=== PATIENT | female | born 1990 | race Caucasian/White ===

== ENCOUNTER 2016-07-28 11:00 | Outpatient (RCR) | payer MEDICAID ==
[~2016-07-28 11:00] MED LIST: /ONDA4TA OR; ALBUTEROL INH; DILA2TAB OR; IBUP80TA PO; LIDODERM PATCH TOP; OXYB5TAB4 OR; PERCOCET PO; PHEN 25 PO; PRENATAL VITAMIN PO; PRENTAB43 PO; TUMS500C PO; TYLE167L PO; VICO5TAB OR
== END 2016-08-02 | disposition home or self-care (01) ==
LOC: M OUTALCOH 11:00
PROVIDERS: ATTEND Psychiatry & Neurology Psychiatry
DX: F12.10 Cannabis abuse, uncomplicated (principal); F17.200 Nicotine dependence, unspecified, uncomplicated

== ENCOUNTER 2016-08-20 00:31 | Emergency (ER) | payer MEDICAID, OTHER ==
[2016-08-20] MEDS ORDERED: IBUPROFEN 600 MG TAB As Ordered ONE ×2 (00:56→01:01)
[2016-08-20] MEDS ORDERED: AUGMENTIN 875 MG TAB As Ordered ONE (00:56)
--- NOTE | 2016-08-20 01:10 | EDDOCDS ---
Physician Documentation [facility] Name: Rylie Rosa Age: 25 yrs Sex: Female : 1990 Arrival Date: 08/20/2016 Time: 00:31 Bed I1 / M1 Private MD: Disposition: 08/20/16 00:53 Discharged to Home/Self Care. Impression: Jaw pain - left post extraction pain following dental procedure. - Condition is Stable. - Discharge Instructions: Dental Extraction, Care After. - Prescriptions for Augmentin 875- 125 mg Oral Tablet - take 1 tablet by ORAL route every 12 hours for 10 days; 19 tablet. Ibuprofen 600 mg Oral Tablet - take 1 tablet by ORAL route every 6 hours As needed take with food; 30 tablet. - Medication Reconciliation, Local Pharmacy Hours form. - Follow up: Private Physician; When: As previously arranged; Reason: Recheck today's complaints, Continuance of care. Follow up: Emergency Department; When: As needed; Reason: Fever > 102F, Trouble breathing, Worsening of conditions. - Problem is new. - Symptoms are unchanged. Historical: - Allergies: Advair Diskus (Anaphylaxis); codeine (Rash); Tramadol HCl (Rash); - Home Meds: 1. Vicodin 5-500 mg Oral tab 1 tab every 4-6 hours - PMHx: Asthma; GERD; Kidney stones; Ovarian cyst; - PSHx: stone basket retieval kidney stones; renal stent; ; teeth removal; - Social history: Smoking status: Patient uses tobacco products, heavy tobacco smoker. No barriers to communication noted, The patient speaks fluent American. - Family history: Not pertinent. - : The pt / caregiver states he / she is not on anticoagulants. Home medication list is obtained from the patient. - Exposure Risk Screening:: None identified. 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 1 in. (154.94 cm); Pain 4/10; 00:39 Body Mass Index 23.62 (56.70 kg, 154.94 cm) mcp MDM: 00:53 Amoxicillin-Clavulanate 875 mg 1 tabs PO once ordered. ar2 00:53 Ibuprofen 600 mg PO once ordered. ar2 01:06 Financial registration complete. hs2 Administered Medications: 01:08 Drug: Amoxicillin-Clavulanate 1 tabs [amoxicillin 875 mg-potassium clavulanate 125 mg ld5 tablet (1 tabs)] Route: PO; 01:08 Drug: Ibuprofen 600 mg [ibuprofen 600 mg tablet (1 tabs)] Route: PO; ld5 01:08 Follow up: Response: Pt left department before re-evaluation is appropriate ld5 Signatures: Rosemary Hernández RN RN Chris Santa, PAAlexC PAMerlin ar2 Migdalia Marquez RN RN ld5 Marline Huffman, Reg Reg hs2 MTDD
--- NOTE | 2016-08-20 01:10 | EDDOCDS ---
Nurse's Notes [facility] Name: Rylie Rosa Age: 25 yrs Sex: Female : 1990 Arrival Date: 08/20/2016 Time: 00:31 Bed I1 / M1 Private MD: Diagnosis: Jaw pain-left post extraction pain following dental procedure Presentation: 08/20 00:40 Presenting complaint: Patient states: Week ago got 4 teeth pulled--has stitches in mcp mouth and was told to watch for dry socket. Ran out of Ibuprophen. Has had some swelling. Adult Sepsis Screening: The patient does not have new or worsening altered mentation. Patient's respiratory rate is less than 22. Systolic blood pressure is greater than 100. Patient has a qSOFA score of 0- Negative Sepsis Screen. Suicide/Homicide risk assessment- the patient denies having any suicidal and/or homicidal ideations and does not present with any other emotional, behavioral or mental health complaints. Status: Patient is not a auto service representative or dependent. Transition of care: patient was not received from another setting of care. 00:40 Acuity: MAKAYLA Level 4 [facility] 00:40 Method Of Arrival: Walkin/Carried/Asstd [facility] Triage Assessment: 00:43 General: Appears in no apparent distress, Behavior is cooperative. Pain: Location: [facility] mouth Pain currently is 4 out of 10 on a pain scale. HIV screening NA for this visit Offered previously. Neurological: No deficits noted. Respiratory: Airway is patent Respiratory effort is even, unlabored. Derm: Skin is pink, warm & dry. 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 Vicodin 5-500 mg Oral tab 1 tab every 4-6 hours - PMHx: Asthma; GERD; Kidney stones; Ovarian cyst; - PSHx: stone basket retieval kidney stones; renal stent; ; teeth removal; - Social history: Smoking status: Patient uses tobacco products, heavy tobacco smoker. No barriers to communication noted, The patient speaks fluent Luxembourgish. - Family history: Not pertinent. - : The pt / caregiver states he / she is not on anticoagulants. Home medication list is obtained from the patient. - Exposure Risk Screening:: None identified. Screenin:07 Screening information is obtained from the patient. Fall risk: No risks identified. ld5 Assistance ADL's: requires no assistance with activities of daily living. Abuse/DV Screen: The patient / caregiver reports he/she is: not in a situation that causes fear, pain or injury. Nutritional screening: No deficits noted. Advance Directives: Currently, there is no health care proxy. home support is adequate. Assessment: 01:07 General: Appears in no apparent distress, Behavior is cooperative. Pain: Location: ld5 mouth. Neurological: Level of Consciousness is awake, Oriented to person, place, time. EENT: Reports pain in mouth. Respiratory: Airway is patent Respiratory effort is even, unlabored. Vital Signs: 00:39 BP 124 / 71; Pulse 83; Resp 18; Temp 96.3(T); Pulse Ox 96% on R/A; Weight 56.7 kg; [facility] Height 5 ft. 1 in. (154.94 cm); Pain 4/10; 00:39 Body Mass Index 23.62 (56.70 kg, 154.94 cm) [facility] Vitals: 00:39 Log In Time: August 20, 2016 at 00:31. [facility] ED Course: 00:36 Patient visited by Marline Huffman Reg. hs2 00:36 Patient moved to Waiting hs2 00:42 Triage Initiated [facility] 00:44 Patient visited by Rosemary Hernández RN. [facility] 00:44 Patient moved to I1 / M1 [facility] 00:46 [facility] ar2 00:46 Eros Hayward DO is Attending Physician. ar2 00:46 Patient visited by Chris Reese PA-C. ar2 01:07 The patient / caregiver is instructed regarding the plan of care and ED course. ld5 01:07 No IV's were initiated during this patient's visit. No procedures done that require ld5 assistance. 01:09 Patient visited by Migdalia Marquez RN. ld5 Administered Medications: 01:08 Drug: Amoxicillin-Clavulanate 1 tabs [amoxicillin 875 mg-potassium clavulanate 125 mg ld5 tablet (1 tabs)] Route: PO; 01:08 Drug: Ibuprofen 600 mg [ibuprofen 600 mg tablet (1 tabs)] Route: PO; ld5 01:08 Follow up: Response: Pt left department before re-evaluation is appropriate ld5 Order Results: There are currently no results for this order. Outcome: 00:53 Discharge ordered by Provider. ar2 01:07 Discharge Assessment: Patient awake, alert and oriented x 3. No cognitive and/or ld5 functional deficits noted. Patient verbalized understanding of disposition instructions. patient administered narcotics - no. The following High Risk Discharge criteria are identified: None. Discharged to home ambulatory, with friend. Condition: stable. Discharge instructions given to patient, Instructed on discharge instructions, follow up and referral plans. medication usage, Demonstrated understanding of instructions, medications, Pt was receptive of discharge instructions/ teaching. Prescriptions given X 2. No special radiology studies were completed. Property :Personal belongings accompany Pt. 01:08 Patient left the ED. ld5 Signatures: Rosemary Hernández RN RN mcp Chris Reese, MARÍA ELENA RING ar2 Migdalia Marquez RN RN ld5 Marline Huffman, Reg Reg hs2 Corrections: (The following items were deleted from the chart) 00:42 00:40 Presenting complaint: Patient states: Week ago got 4 teeth pulled--has stitches mcp in mouth and was told to watch for dry socket. Ran out of Ibuprophen mcp MTDD
--- NOTE | 2016-08-22 02:09 | EDDOCDS ---
Nurse's Notes [facility] Name: Rylie Rosa Age: 25 yrs Sex: Female : 1990 Arrival Date: 08/20/2016 Time: 00:31 Bed I1 / M1 Private MD: Diagnosis: Jaw pain-left post extraction pain following dental procedure Presentation: 08/20 00:40 Presenting complaint: Patient states: Week ago got 4 teeth pulled--has stitches in mcp mouth and was told to watch for dry socket. Ran out of Ibuprophen. Has had some swelling. Adult Sepsis Screening: The patient does not have new or worsening altered mentation. Patient's respiratory rate is less than 22. Systolic blood pressure is greater than 100. Patient has a qSOFA score of 0- Negative Sepsis Screen. Suicide/Homicide risk assessment- the patient denies having any suicidal and/or homicidal ideations and does not present with any other emotional, behavioral or mental health complaints. Status: Patient is not a family service caseworker or dependent. Transition of care: patient was not received from another setting of care. 00:40 Acuity: MAKAYLA Level 4 [facility] 00:40 Method Of Arrival: Walkin/Carried/Asstd [facility] Triage Assessment: 00:43 General: Appears in no apparent distress, Behavior is cooperative. Pain: Location: [facility] mouth Pain currently is 4 out of 10 on a pain scale. HIV screening NA for this visit Offered previously. Neurological: No deficits noted. Respiratory: Airway is patent Respiratory effort is even, unlabored. Derm: Skin is pink, warm & dry. 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 Vicodin 5-500 mg Oral tab 1 tab every 4-6 hours - PMHx: Asthma; GERD; Kidney stones; Ovarian cyst; - PSHx: stone basket retieval kidney stones; renal stent; ; teeth removal; - Social history: Smoking status: Patient uses tobacco products, heavy tobacco smoker. No barriers to communication noted, The patient speaks fluent Indonesian. - Family history: Not pertinent. - : The pt / caregiver states he / she is not on anticoagulants. Home medication list is obtained from the patient. - Exposure Risk Screening:: None identified. Screenin:07 Screening information is obtained from the patient. Fall risk: No risks identified. ld5 Assistance ADL's: requires no assistance with activities of daily living. Abuse/DV Screen: The patient / caregiver reports he/she is: not in a situation that causes fear, pain or injury. Nutritional screening: No deficits noted. Advance Directives: Currently, there is no health care proxy. home support is adequate. Assessment: 01:07 General: Appears in no apparent distress, Behavior is cooperative. Pain: Location: ld5 mouth. Neurological: Level of Consciousness is awake, Oriented to person, place, time. EENT: Reports pain in mouth. Respiratory: Airway is patent Respiratory effort is even, unlabored. Vital Signs: 00:39 BP 124 / 71; Pulse 83; Resp 18; Temp 96.3(T); Pulse Ox 96% on R/A; Weight 56.7 kg; [facility] Height 5 ft. 1 in. (154.94 cm); Pain 4/10; 00:39 Body Mass Index 23.62 (56.70 kg, 154.94 cm) [facility] Vitals: 00:39 Log In Time: August 20, 2016 at 00:31. [facility] ED Course: 00:36 Patient visited by Marline Huffman Reg. hs2 00:36 Patient moved to Waiting hs2 00:42 Triage Initiated [facility] 00:44 Patient visited by Rosemary Hernández RN. [facility] 00:44 Patient moved to I1 / M1 [facility] 00:46 Chris Reese [facility]-C [facility] ar2 00:46 Eros Hayward DO is Attending Physician. ar2 00:46 Patient visited by Chris Reese PA-C. ar2 01:07 The patient / caregiver is instructed regarding the plan of care and ED course. ld5 01:07 No IV's were initiated during this patient's visit. No procedures done that require ld5 assistance. 01:09 Patient visited by Migdalia Marquez RN. ld5 03:59 [facility] Payment Agreement was scanned into [employer] and attached to record. [facility] 11:52 T-Sheet-- Draft Copy was scanned into [employer] and attached to record. gb Administered Medications: 01:08 Drug: Amoxicillin-Clavulanate 1 tabs [amoxicillin 875 mg-potassium clavulanate 125 mg ld5 tablet (1 tabs)] Route: PO; 01:08 Drug: Ibuprofen 600 mg [ibuprofen 600 mg tablet (1 tabs)] Route: PO; ld5 01:08 Follow up: Response: Pt left department before re-evaluation is appropriate ld5 Order Results: There are currently no results for this order. Outcome: 00:53 Discharge ordered by Provider. ar2 01:07 Discharge Assessment: Patient awake, alert and oriented x 3. No cognitive and/or ld5 functional deficits noted. Patient verbalized understanding of disposition instructions. patient administered narcotics - no. The following High Risk Discharge criteria are identified: None. Discharged to home ambulatory, with friend. Condition: stable. Discharge instructions given to patient, Instructed on discharge instructions, follow up and referral plans. medication usage, Demonstrated understanding of instructions, medications, Pt was receptive of discharge instructions/ teaching. Prescriptions given X 2. No special radiology studies were completed. Property :Personal belongings accompany Pt. 01:08 Patient left the ED. ld5 Signatures: Rosemary Hernández RN RN Rizwana Whitney, Reg Reg gb Chris Reese, PA-C PA-C ar2 Migdalia Marquez RN RN ld5 Cherie Iqbal Marline Leroy, Reg Reg hs2 Corrections: (The following items were deleted from the chart) 00:42 00:40 Presenting complaint: Patient states: Week ago got 4 teeth pulled--has stitches mcp in mouth and was told to watch for dry socket. Ran out of Ibuprophen mcp Chart Complete MTDD
--- NOTE | 2016-08-22 02:09 | EDDOCDS ---
Physician Documentation [facility] Name: Rylie Rosa Age: 25 yrs Sex: Female : 1990 Arrival Date: 08/20/2016 Time: 00:31 Bed I1 / M1 Private MD: Disposition: 08/20/16 00:53 Discharged to Home/Self Care. Impression: Jaw pain - left post extraction pain following dental procedure. - Condition is Stable. - Discharge Instructions: Dental Extraction, Care After. - Prescriptions for Augmentin 875- 125 mg Oral Tablet - take 1 tablet by ORAL route every 12 hours for 10 days; 19 tablet. Ibuprofen 600 mg Oral Tablet - take 1 tablet by ORAL route every 6 hours As needed take with food; 30 tablet. - Medication Reconciliation, Local Pharmacy Hours form. - Follow up: Private Physician; When: As previously arranged; Reason: Recheck today's complaints, Continuance of care. Follow up: Emergency Department; When: As needed; Reason: Fever > 102F, Trouble breathing, Worsening of conditions. - Problem is new. - Symptoms are unchanged. Historical: - Allergies: Advair Diskus (Anaphylaxis); codeine (Rash); Tramadol HCl (Rash); - Home Meds: 1. Vicodin 5-500 mg Oral tab 1 tab every 4-6 hours - PMHx: Asthma; GERD; Kidney stones; Ovarian cyst; - PSHx: stone basket retieval kidney stones; renal stent; ; teeth removal; - Social history: Smoking status: Patient uses tobacco products, heavy tobacco smoker. No barriers to communication noted, The patient speaks fluent Malaysian. - Family history: Not pertinent. - : The pt / caregiver states he / she is not on anticoagulants. Home medication list is obtained from the patient. - Exposure Risk Screening:: None identified. 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 1 in. (154.94 cm); Pain 4/10; 00:39 Body Mass Index 23.62 (56.70 kg, 154.94 cm) mcp MDM: 00:53 Amoxicillin-Clavulanate 875 mg 1 tabs PO once ordered. ar2 00:53 Ibuprofen 600 mg PO once ordered. ar2 01:06 Financial registration complete. hs2 03:59 [facility] Payment Agreement was scanned into [employer] and attached to record. [facility] 11:52 T-Sheet-- Draft Copy was scanned into [employer] and attached to record. gb Administered Medications: 01:08 Drug: Amoxicillin-Clavulanate 1 tabs [amoxicillin 875 mg-potassium clavulanate 125 mg ld5 tablet (1 tabs)] Route: PO; 01:08 Drug: Ibuprofen 600 mg [ibuprofen 600 mg tablet (1 tabs)] Route: PO; ld5 01:08 Follow up: Response: Pt left department before re-evaluation is appropriate ld5 Signatures: Rosmeary Hernández RN RN [facility] Rizwana Camara, Reg Reg gb Chris Reese, PA-C PAMerlin ar2 Migdalia Marquez RN RN [facility] Cherie Iqbal [facility] Marline Huffman, Reg Reg hs2 The chart was reviewed and I authenticate all verbal orders and agree with the evaluation and treatment provided.Attachments: 03:59 [facility] Payment Agreement [facility] 11:52 T-Sheet-- Draft Copy gb Chart Complete MTDD
--- NOTE | 2016-08-22 02:09 | EDDOCDS ---
Physician Documentation [facility] Name: Rylie Rosa Age: 25 yrs Sex: Female : 1990 Arrival Date: 08/20/2016 Time: 00:31 Bed I1 / M1 Private MD: Disposition: 08/20/16 00:53 Discharged to Home/Self Care. Impression: Jaw pain - left post extraction pain following dental procedure. - Condition is Stable. - Discharge Instructions: Dental Extraction, Care After. - Prescriptions for Augmentin 875- 125 mg Oral Tablet - take 1 tablet by ORAL route every 12 hours for 10 days; 19 tablet. Ibuprofen 600 mg Oral Tablet - take 1 tablet by ORAL route every 6 hours As needed take with food; 30 tablet. - Medication Reconciliation, Local Pharmacy Hours form. - Follow up: Private Physician; When: As previously arranged; Reason: Recheck today's complaints, Continuance of care. Follow up: Emergency Department; When: As needed; Reason: Fever > 102F, Trouble breathing, Worsening of conditions. - Problem is new. - Symptoms are unchanged. Historical: - Allergies: Advair Diskus (Anaphylaxis); codeine (Rash); Tramadol HCl (Rash); - Home Meds: 1. Vicodin 5-500 mg Oral tab 1 tab every 4-6 hours - PMHx: Asthma; GERD; Kidney stones; Ovarian cyst; - PSHx: stone basket retieval kidney stones; renal stent; ; teeth removal; - Social history: Smoking status: Patient uses tobacco products, heavy tobacco smoker. No barriers to communication noted, The patient speaks fluent Comoran. - Family history: Not pertinent. - : The pt / caregiver states he / she is not on anticoagulants. Home medication list is obtained from the patient. - Exposure Risk Screening:: None identified. 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 1 in. (154.94 cm); Pain 4/10; 00:39 Body Mass Index 23.62 (56.70 kg, 154.94 cm) mcp MDM: 00:53 Amoxicillin-Clavulanate 875 mg 1 tabs PO once ordered. ar2 00:53 Ibuprofen 600 mg PO once ordered. ar2 01:06 Financial registration complete. hs2 03:59 [facility] Payment Agreement was scanned into [employer] and attached to record. [facility] 11:52 T-Sheet-- Draft Copy was scanned into [employer] and attached to record. gb Administered Medications: 01:08 Drug: Amoxicillin-Clavulanate 1 tabs [amoxicillin 875 mg-potassium clavulanate 125 mg ld5 tablet (1 tabs)] Route: PO; 01:08 Drug: Ibuprofen 600 mg [ibuprofen 600 mg tablet (1 tabs)] Route: PO; ld5 01:08 Follow up: Response: Pt left department before re-evaluation is appropriate ld5 Signatures: Rosemary Hernández RN RN [facility] Rizwana Camara, Reg Reg gb Chris Reese, PA-C PAMerlin ar2 Migdalia Marquez RN RN [facility] Cherie Iqbal [facility] Marline Huffman, Reg Reg hs2 The chart was reviewed and I authenticate all verbal orders and agree with the evaluation and treatment provided.Attachments: 03:59 [facility] Payment Agreement [facility] 11:52 T-Sheet-- Draft Copy gb Chart Complete MTDD
== END 2016-08-20 01:08 | disposition home or self-care (01) ==
LOC: M ED 00:31
DX: R68.84 Jaw pain (principal); Z98.890 Other specified postprocedural states; J45.909 Unspecified asthma, uncomplicated; K21.9 Gastro-esophageal reflux disease without esophagitis; Z87.442 Personal history of urinary calculi; Z87.42 Personal history of other diseases of the female genital tract; Z88.5 Allergy status to narcotic agent; Z88.8 Allergy status to other drugs, medicaments and biological substances; F17.210 Nicotine dependence, cigarettes, uncomplicated

== ENCOUNTER 2016-09-12 12:43 | Emergency (ER) | payer OTHER ==
[~2016-09-12] VITALS: Ht 154.9 cm; Wt 56.7 kg
[2016-09-12] MEDS ORDERED: ONDANSETRON 4MG/2ML VIAL (J2405) IV ONE (13:30)
[2016-09-12] MEDS ORDERED: NS 1,000 ML IV ONE (13:30)
[2016-09-12] MEDS ORDERED: MORPHINE 4 MG/ML 1ML SYRINGE IV ONE (13:30)
[2016-09-12 14:05] LABS: MEAN CORPUSCULAR HEMOGLOBIN 30.8 pg (27.0-33.0); MEAN CORPUSCULAR HGB CONC 34.4 g/dl (32.0-36.5); MEAN CORPUSCULAR VOLUME 89.6 fl (80.0-96.0); RED CELL DISTRIBUTION WIDTH 14.1 % (11.5-14.5); WHITE BLOOD COUNT 6.2 K/mm3 (4.0-10.0)
[2016-09-12 14:21] LABS: ALBUMIN 3.9 GM/DL (3.2-5.2); ALKALINE PHOSPHATASE 50 U/L (45-117); ALT/SGPT 13 U/L (12-78); ANION GAP 8 MEQ/L (8-16); AST/SGOT 15 U/L (15-37); BILIRUBIN,TOTAL 0.9 MG/DL (0.2-1.0); BLOOD UREA NITROGEN 15 MG/DL (7-18); CALCIUM LEVEL 9.1 MG/DL (8.5-10.1); CARBON DIOXIDE LEVEL 25 MEQ/L (21-32); CHLORIDE LEVEL 109 MEQ/L (98-107); GLOMERULAR FILTRATION RATE > 60.0 (>60); GLUCOSE, FASTING 75 MG/DL (70-105); POTASSIUM SERUM 3.9 MEQ/L (3.5-5.1); SODIUM LEVEL 142 MEQ/L (136-145); TOTAL PROTEIN 6.9 GM/DL (6.4-8.2)
--- NOTE | 2016-09-12 14:47 | REP ---
CT abdomen and pelvis without IV or oral contrast: Renal stone protocol. History: Abdomen and flank pain. The patient reports right-sided flank pain. Comparison study: December 29, 2012. CT findings: The lung bases are clear. The liver and the spleen are normal in size and homogeneous in texture. Gallbladder and pancreas are unremarkable. No adrenal lesion is seen. Small and large intestinal bowel loops are unremarkable in the abdomen and pelvis. The appendix is not clearly visualized, but there is no inflammatory focus in the right lower quadrant. There are intrarenal calculi in both kidneys, two small 2-3 mm calculi are seen in the left kidney and one in the right. There is mild to moderate right-sided hydronephrosis. Right hydroureter is seen and can be traced to the distal ureter where there is a 4 mm distal ureteral calculus in the ureterovesical junction within the bladder wall region to the right of midline. There are bilateral pelvic phleboliths as well. No uterine or adnexal pathology is seen. No abdominal wall defect is seen. No evidence of free intraperitoneal air noted. No bony destructive lesion seen. Impression: 4 mm obstructive stone in the right ureteral vesicle junction, intramural segment at the bladder wall. Moderate right-sided hydronephrosis and hydroureter. There are also intrarenal calculi in both kidneys, two on the left and one on the right. Signed by Santosh Thomas MD 09/12/2016 07:18 P
[2016-09-12] MEDS ORDERED: FLOM5CAP PO (15:43)
[2016-09-12] MEDS ORDERED: TAMSULOSIN 0.4 MG CAP PO ONE (15:45)
[2016-09-12] MEDS ORDERED: ZOFR4TAB3 PO (15:50)
[2016-09-12] MEDS ORDERED: OXYC1TAB23 PO (15:50)
[2016-09-12 15:51] VITALS: BP 112/69
[2016-09-12] MEDS ORDERED: IBUP80TA PO (15:51)
== END 2016-09-12 16:03 | disposition home or self-care (01) ==
LOC: M ED 13:29
DX: N20.1 Calculus of ureter (principal); F41.9 Anxiety disorder, unspecified; F32.9 Major depressive disorder, single episode, unspecified; Z87.442 Personal history of urinary calculi; Z79.899 Other long term (current) drug therapy; Z88.5 Allergy status to narcotic agent; Z88.8 Allergy status to other drugs, medicaments and biological substances; Z91.018 Allergy to other foods; Z91.011 Allergy to milk products
CPT/HCPCS: 74176; 80053; 81001; 81025; 83690; 85027; 87086; 96374; 96375; 99284; J2405

== ENCOUNTER → 2016-09-26 | Outpatient (CLI) | payer OTHER ==
[~2016-09-26] MED LIST changes: +FLOM5CAP PO; +OXYC1TAB23 PO; +ZOFR4TAB3 PO
--- NOTE | 2016-09-26 12:33 | REP ---
Clinical: History of acute right-sided obstructive uropathy. Comparison: CT dated 09/12/2016. Findings: Evaluation of the urinary tract system is limited due to interposed bowel gas, but no obvious urinary tract calcifications are identified. Calculi within the pelvis likely represent phleboliths. The bowel gas pattern is nonspecific. No organomegaly. Skeletal structures intact. Impression: No obvious urinary tract calcifications. Phleboliths noted in the pelvis. Nonspecific bowel gas pattern. Signed by Thanh Santos MD 09/26/2016 12:24 P
== END ==
LOC: M SMT 11:57
PROVIDERS: ATTEND Nurse Practitioner Women's Health
DX: N13.2 Hydronephrosis with renal and ureteral calculous obstruction (principal)

== ENCOUNTER 2016-12-25 23:12 | Emergency (ER) | payer OTHER ==
[~2016-12-25] VITALS: Ht 154.9 cm; Wt 56.4 kg
--- NOTE | 2016-12-26 05:10 | REPUSA ---
CLINICAL HISTORY: Cramping. TECHNIQUE: Transabdominal ultrasound of the pelvis was performed. FINDINGS: Single, live intrauterine gestation. Estimated gestational age is 7 weeks and 6 days. [place]-rump zita th measures 15 mm. heart rate 153 beats per minute. No subchorionic hemorrhage was identified. No maternal adnexal abnormality. Estimated delivery date 06/07/2018. IMPRESSION: Single, live intrauterine gestation. No abnormality is seen.
[2016-12-26] MEDS ORDERED: FLAG500T PO (05:38)
[2016-12-26 05:45] VITALS: BP 114/65
[2016-12-26] MEDS ORDERED: metroNIDAZOLE (FLAGYL) 500 MG TAB PO ONE (05:45)
== END 2016-12-26 06:01 | disposition home or self-care (01) ==
LOC: M ED 12-26 01:50
DX: O23.21 Infections of urethra in pregnancy, first trimester (principal); O99.331 Smoking (tobacco) complicating pregnancy, first trimester; O99.511 Diseases of the respiratory system complicating pregnancy, first trimester; J45.909 Unspecified asthma, uncomplicated; Z3A.01 Less than 8 weeks gestation of pregnancy; Z91.02 Food additives allergy status; Z91.011 Allergy to milk products; Z88.5 Allergy status to narcotic agent; Z88.8 Allergy status to other drugs, medicaments and biological substances

== ENCOUNTER 2017-02-10 23:57 | Emergency (ER) | payer OTHER ==
[~2017-02-10] VITALS: Ht 154.9 cm; Wt 56.8 kg
[~2017-02-10 23:57] MED LIST changes: +FLAG500T PO
[2017-02-11 00:08] VITALS: BP 120/59
[2017-02-11] MEDS ORDERED: ACETAMINOPHEN 325 MG TAB PO ONE (04:45)
--- NOTE | 2017-02-11 07:48 | REP ---
Right hand four views: Comparison is 12/13/2014. There is question of a fracture at the base of the middle finger metacarpal. This should be correlated with clinical point tenderness. The previous fracture at the base of the fifth digit metacarpal has healed in satisfactory position alignment. Mineralization and joint spaces are otherwise unremarkable. There are no calcifications or foreign bodies. Impression: Question fracture at the base of the middle finger metacarpal. Correlate with clinical point tenderness. Signed by Charanjit Jordan MD 02/11/2017 07:39 A
--- NOTE | 2017-02-11 07:49 | REP ---
Right ankle four views: There is soft tissue edema laterally. There is no fracture or dislocation. The mortise is symmetric. Mineralization is normal. There are no calcifications or foreign bodies. Impression: Soft tissue edema laterally. No fracture. Signed by Charanjit Jordan MD 02/11/2017 07:40 A
--- NOTE | 2017-02-11 10:27 | ED PDOC ---
Post-Departure Follow-Up Radiology rpeort -? metacarpal fracture - pt called return for splint and orhto follow-up Tracy Fernandes MD Feb 11, 2017 10:27
== END 2017-02-11 05:41 | disposition home or self-care (01) ==
LOC: M ED 23:57
DX: S60.221A Contusion of right hand, initial encounter (principal); S90.01XA Contusion of right ankle, initial encounter; W22.8XXA Striking against or struck by other objects, initial encounter; Y92.9 Unspecified place or not applicable; Y93.89 Activity, other specified; Y99.9 Unspecified external cause status; Z87.442 Personal history of urinary calculi; J45.909 Unspecified asthma, uncomplicated; F17.200 Nicotine dependence, unspecified, uncomplicated; Z91.018 Allergy to other foods; Z88.5 Allergy status to narcotic agent; Z91.011 Allergy to milk products; Z88.8 Allergy status to other drugs, medicaments and biological substances

== ENCOUNTER 2017-02-22 22:07 | Emergency (ER) | payer OTHER ==
[~2017-02-22] VITALS: Ht 154.9 cm; Wt 59.0 kg
[2017-02-22 22:08] VITALS: BP 119/79
== END 2017-02-23 00:17 | disposition home or self-care (01) ==
LOC: M ED 22:07
DX: S62.302A Unspecified fracture of third metacarpal bone, right hand, initial encounter for closed fracture (principal); X58.XXXA Exposure to other specified factors, initial encounter; Y92.9 Unspecified place or not applicable; Y93.9 Activity, unspecified; Y99.9 Unspecified external cause status; Z87.442 Personal history of urinary calculi; G43.909 Migraine, unspecified, not intractable, without status migrainosus; F41.9 Anxiety disorder, unspecified; I95.9 Hypotension, unspecified; F17.200 Nicotine dependence, unspecified, uncomplicated; Z91.018 Allergy to other foods; Z88.5 Allergy status to narcotic agent; Z88.8 Allergy status to other drugs, medicaments and biological substances; Z91.011 Allergy to milk products

== ENCOUNTER 2017-03-15 22:39 | Emergency (ER) | payer OTHER ==
[~2017-03-15] VITALS: Ht 154.9 cm; Wt 56.8 kg
[2017-03-15] MEDS ORDERED: ALBU17IN (22:52)
[2017-03-16] MEDS ORDERED: IBUPROFEN 600 MG TAB PO ONE (01:30)
--- NOTE | 2017-03-16 02:10 | REPUSA ---
CLINICAL HISTORY: Neck pain. TECHNIQUE: Multiple axial images were obtained through the cervical spine. Images were also reconstru cted in coronal and sagittal planes. The study was performed without IV contrast. COMMENTS: There is no fracture or spondylolisthesis visualized. The paraspinal soft tissues are unremarkable. T here are no lytic or blastic lesions. Straightening of cervical lordosis is seen, suggesting muscular spasm. There is evidence of minimal m ultilevel disk disease, demonstrated by minimal osteophytosis and endplate sclerosis. No significant disk herniation is noted at any level. Canal and foramina remain patent. IMPRESSION: 1. No fracture or spondylolisthesis. 2. Straightening of cervical lordosis is seen, suggesting muscular spasm. 3. Minimal multilevel spondylosis. Thank you for your kind referral of this patient.
--- NOTE | 2017-03-16 02:20 | REPUSA ---
CLINICAL HISTORY: Trauma. TECHNIQUE: Multiple axial CT images were obtained through the thoracic spine without IV contrast mate rial. MPR coronal and sagittal sequences were obtained. COMMENTS: There is no fracture visualized. The paraspinal soft tissues are unremarkable. There are no lytic or blastic lesions. The paravertebral soft tissue space is normal. IMPRESSION: Normal study. Thank you for your kind referral of this patient.
--- NOTE | 2017-03-16 02:30 | REPUSA ---
CLINICAL HISTORY: Back pain. TECHNIQUE: Multiple axial images were obtained through the L1-L2, L2-L3, L3-L4, L4-L5 and L5-S1 inter spaces. Images were also reconstructed in coronal and sagittal planes. COMMENTS: There is no fracture visualized. The paraspinal soft tissues are unremarkable. There are no lytic or blastic lesions. Straightening of lumbar lordosis is seen, suggesting muscular spasm. There is evidence of multilevel disk disease, demonstrated by osteophytosis ad endplate sclerosis. Evaluation of individual levels reveals the following: At L3-L4, mild diffuse disc bulge. The spinal canal is not narrowed. Mild bilateral neural foramina n arrowing. At L4-L5, mild diffuse disc bulge. Superimposed left paracentral broad-based disc protrusion. The spi nal canal is not narrowed. Mild bilateral neural foramina narrowing. At L1-L2, L2-L3, L5-S1, broad-based disk bulge, results in mild bilateral foraminal narrowing. Canal is patent. IMPRESSION: 1. No fracture or spondylolisthesis. 2. Straightening of lumbar lordosis is seen, suggesting muscular spasm. 3. Degenerative disc disease. Thank you for your kind referral of this patient.
[2017-03-16 02:53] VITALS: BP 123/69
--- NOTE | 2017-03-16 08:16 | REP ---
Clinical: Trauma. Technique: AP, lateral, bilateral views of the right hand. Comparison: 02/11/2017. Findings: Subtle irregularity at the base of the third metacarpal bone is again identified and unchanged. Findings should be correlated with prior trauma to exclude subacute injury. No acute fracture or dislocation is otherwise appreciated. The surrounding soft tissues as well as a joint spaces appear intact and normal. Impression: Irregularity at the base of the third metacarpal bone similar to prior examination cannot exclude a subacute injury. Signed by Thanh Santos MD 03/16/2017 08:07 A
== END 2017-03-16 02:58 | disposition home or self-care (01) ==
LOC: M ED 22:39
DX: S60.221A Contusion of right hand, initial encounter (principal); S20.229A Contusion of unspecified back wall of thorax, initial encounter; Y04.0XXA Assault by unarmed brawl or fight, initial encounter; Y92.410 Unspecified street and highway as the place of occurrence of the external cause; Y93.89 Activity, other specified; Y99.8 Other external cause status; J45.909 Unspecified asthma, uncomplicated; Z87.442 Personal history of urinary calculi; Z91.018 Allergy to other foods; Z88.5 Allergy status to narcotic agent; Z88.8 Allergy status to other drugs, medicaments and biological substances; Z91.011 Allergy to milk products

== ENCOUNTER 2017-03-26 23:05 | Emergency (ER) | payer OTHER ==
[~2017-03-26] VITALS: Ht 154.9 cm; Wt 59.1 kg
[2017-03-26 23:05] VITALS: BP 125/75
[~2017-03-26 23:05] MED LIST changes: +ALBU17IN
[2017-03-26] MEDS ORDERED: ALBUTEROL SULFATE 2.5 MG/0.5 ML INH NEB SOLN NEB ONE (23:30)
[2017-03-27] MEDS ORDERED: ALBUTEROL SULFATE 2.5 MG/0.5 ML INH NEB SOLN NEB ONE (00:30)
[2017-03-27] MEDS ORDERED: predniSONE 20 MG TAB PO ONE (00:30)
[2017-03-27] MEDS ORDERED: diphenhydrAMINE 25 MG CAP PO ONE (01:00)
[2017-03-27] MEDS ORDERED: ZITHTAB PO (02:06)
[2017-03-27] MEDS ORDERED: ALBU17IN INH (02:08)
[2017-03-27] MEDS ORDERED: PRED20TA PO (02:08)
[2017-03-27] MEDS ORDERED: IBUP80TA PO (02:08)
[2017-03-27] MEDS ORDERED: AZITHROMYCIN 250 MG TAB PO ONE (02:15)
[2017-03-27] MEDS ORDERED: IBUPROFEN 800 MG TAB PO ONE (02:15)
[2017-03-27] MEDS ORDERED: ALBUTEROL 90 MCG/ACT 8GM HFA INHALER INH ONE (02:15)
--- NOTE | 2017-03-27 03:38 | REP ---
Clinical: Shortness of breath . Comparison: 08/30/2011 Technique: PA and lateral. Findings: The mediastinum and cardiac silhouette are normal. The lung juan are clear and without acute consolidation, effusion, or pneumothorax. The skeletal structures are intact and normal. Impression: 1. No acute cardiopulmonary process. Signed by Thanh Santos MD 03/27/2017 03:29 A
== END 2017-03-27 02:48 | disposition home or self-care (01) ==
LOC: M ED 23:05
DX: J45.901 Unspecified asthma with (acute) exacerbation (principal); J20.9 Acute bronchitis, unspecified; J30.81 Allergic rhinitis due to animal (cat) (dog) hair and dander; G43.909 Migraine, unspecified, not intractable, without status migrainosus; M54.9 Dorsalgia, unspecified; F41.9 Anxiety disorder, unspecified; Z87.442 Personal history of urinary calculi; F17.200 Nicotine dependence, unspecified, uncomplicated; F12.10 Cannabis abuse, uncomplicated; Z91.018 Allergy to other foods; Z88.5 Allergy status to narcotic agent; Z88.8 Allergy status to other drugs, medicaments and biological substances; Z91.011 Allergy to milk products

== ENCOUNTER 2018-03-02 01:43 | Emergency (ER) | payer MEDICAID, OTHER ==
[2018-03-02] MEDS: NAPROXEN 250 MG TAB PO (03:26)
[2018-03-02] MEDS: TETANUS/DIPHTHERIA TOX ADSORB ADULT 0.5ML SYR/VIAL (90714) IM (03:28)
== END 2018-03-02 03:52 | disposition home or self-care (01) ==
LOC: M ED 01:43
DX: S80.811A Abrasion, right lower leg, initial encounter (principal); W10.9XXA Fall (on) (from) unspecified stairs and steps, initial encounter; Y92.009 Unspecified place in unspecified non-institutional (private) residence as the place of occurrence of the external cause; J45.909 Unspecified asthma, uncomplicated; F17.200 Nicotine dependence, unspecified, uncomplicated; Z91.018 Allergy to other foods; Z88.5 Allergy status to narcotic agent; Z88.8 Allergy status to other drugs, medicaments and biological substances; Z91.011 Allergy to milk products
CPT/HCPCS: 90714

== ENCOUNTER 2018-03-02 20:30 | Emergency (ER) | payer MEDICAID ==
[2018-03-02] MEDS: NAPROXEN 250 MG TAB PO (21:13)
[2018-03-02] MEDS: NORCO 5/325MG TABLET (BULK FOR ED) PO (21:13)
== END 2018-03-02 21:26 | disposition home or self-care (01) ==
LOC: M ED 20:30
DX: M79.604 Pain in right leg (principal); J45.909 Unspecified asthma, uncomplicated; F17.210 Nicotine dependence, cigarettes, uncomplicated; Z91.018 Allergy to other foods; Z88.5 Allergy status to narcotic agent; Z88.8 Allergy status to other drugs, medicaments and biological substances; Z91.011 Allergy to milk products
CPT/HCPCS: 99284

== ENCOUNTER → 2018-05-01 | Outpatient (REF) | payer OTHER | LOC: M LAB REF 16:48 | DX: J02.9 Acute pharyngitis, unspecified (principal) ==

== ENCOUNTER 2020-03-28 16:16 | Emergency (ER) | payer OTHER, SELFPAY ==
[~2020-03-28] VITALS: Ht 154.9 cm; Wt 57.5 kg
[~2020-03-28 16:16] MED LIST changes: -/ONDA4TA OR; +ALBU17IN INH; +FLOM0.4C39 PO; -FLOM5CAP PO; +HYDR-3715 PO; +NAPR-837 PO; +ONDA-1 OR; +PRED20TA PO; +VENTAER INH; +ZITHTAB PO; +ZOFR4TAB14 PO; -ZOFR4TAB3 PO
[2020-03-28] MEDS ORDERED: CLEO300C2 PO (16:26)
[2020-03-28] MEDS ORDERED: BOOSTRIX/ADACEL VACCINE (DIPHTH/PERTUSS/ACELL/TETANUS) 0.5ML SYR IM ONE (16:45)
--- NOTE | 2020-03-28 18:06 | REPVR ---
PROCEDURE INFORMATION: Exam: XR Right Foot Complete Exam date and time: 03/28/2020 5:05 PM Age: 29 years old Clinical indication: Other: Stepped on nail. 2nd toe; Additional info: Stepped on nail, 2nd toe pain TECHNIQUE: Imaging protocol: XR Right foot. Views: 3 or more views. COMPARISON: CR Ankle, complete 02/11/2017 4:52 AM FINDINGS: Bones/joints: Mild hallux valgus. There appears to be increased density within the plantar surface of the forefoot. Soft tissues: No radiopaque foreign body is seen within the right 2nd toe. No acute fracture or dislocation. IMPRESSION: 1. No acute fracture or dislocation or radiopaque foreign body. 2. Increased density and soft tissue swelling plantar aspect of the forefoot. No gas bubbles are apparent. Electronically signed by: Екатерина Silva On 03/28/2020 18:05:58 PM
[2020-03-28] MEDS ORDERED: AUGM875T28 PO (18:27)
[2020-03-28] MEDS ORDERED: IBUP-1022 PO (18:27)
[2020-03-28] MEDS ORDERED: AUGMENTIN 875 MG TAB PO ONE (18:45)
[2020-03-28] MEDS ORDERED: NORCO 5/325MG TABLET (BULK FOR ED) PO ONE (18:45)
[2020-03-28 18:49] VITALS: BP 135/90
== END 2020-03-28 18:52 | disposition home or self-care (01) ==
LOC: M ED 16:16
DX: S91.331A Puncture wound without foreign body, right foot, initial encounter (principal); W45.0XXA Nail entering through skin, initial encounter; Y92.019 Unspecified place in single-family (private) house as the place of occurrence of the external cause; Y99.9 Unspecified external cause status; E11.9 Type 2 diabetes mellitus without complications; Z88.6 Allergy status to analgesic agent; Z91.018 Allergy to other foods; Z79.899 Other long term (current) drug therapy

== ENCOUNTER 2021-02-12 15:08 | Outpatient (CLI) | payer SELFPAY ==
[~2021-02-12] VITALS: Ht 154.9 cm; Wt 66.8 kg
[2021-02-12] MEDS: PRENATAL VITAMINS CHEWABLE TABLET PO SCH (09:00)
[~2021-02-12 15:08] MED LIST changes: +AUGM875T28 PO; +CLEO300C2 PO; +IBUP-1022 PO
[2021-02-12] MEDS ORDERED: HOME MED LIST COMPLETE! XX SCH (15:25)
[2021-02-12 15:39] VITALS: BP 123/62
[2021-02-12] MEDS: CALCIUM CARBONATE 500 MG CHEW U/D PO SCH ×2 (16:00→21:00)
--- NOTE | 2021-02-12 16:19 | IPNPDOC ---
Text Note Date of Service The patient was seen on 02/12/21. NOTE Outpatient 30yo unknown MICHAEL due to no care. Presents to ED with reports of upper abdominal pain, lower extremity edema. Pt reports she presented to [facility] mid December, was given a sono order to confirm dating. Was thought to be "30-34wks" at that time. Medical/surgical kidney stones, "enlarged heart" at , environmental asthma, bipolar, social anxiety and depression 2007 NSVB 2014 delivered by for IUGR and placental abruption. 2020 ETOP Of note, she is currently homeless due to residence being condemned by [facility]. She is [address] in tents. States she has full custody of her 2nd child. Reports history of IV drug use and ETOH use in early . Also reports history of Hepatitis C, unknown if she was completely treated. Reports + tobacco use, approximately 1/2 ppd. No distress at this time. Talking, case supervisor present. VSS, afebrile, normotensive Abdomen soft, gravid. Fundal height 32.5cm Cat I tracing No UC noted Mild lower extremity edema. PNP with LFT, PreE panel, UDS, OB sono, BPP and liver sono ordered. VS,Fishbone, I+O VS, Fishbone, I+O Vital Signs Date Time Temp Pulse Resp B/P (MAP) Pulse Ox O2 Delivery O2 Flow Rate FiO2 02/12/21 15:39 97.2 81 18 123/62 (82) Room Air Carrie Noland CNM Feb 12, 2021 16:19
[2021-02-12 16:37] LABS: BASO % 0.3 % (0.0-1.0); EOS # 0.2 10^3/uL (0.0-0.5); EOS % 3.5 % (0.0-3.0); HEMATOCRIT 30.5 % (36.0-47.0); HEMOGLOBIN 9.7 g/dl (12.0-15.5); LYMPH # 1.5 10^3/uL (1.5-5.0); MEAN CORPUSCULAR HEMOGLOBIN 27.9 pg (27.0-33.0); MEAN CORPUSCULAR HGB CONC 31.8 g/dl (32.0-36.5); MEAN CORPUSCULAR VOLUME 87.6 fl (80.0-96.0); MONO # 0.7 10^3/uL (0.0-0.8); MONO % 11.6 % (2.0-8.0); NEUTROPHILS # 3.4 10^3/uL (1.5-8.5); NEUTROPHILS % 58.1 % (36.0-66.0); PLATELET COUNT, AUTOMATED 229 10^3/uL (150-450); RED BLOOD COUNT 3.48 10^6/uL (4.00-5.40); WHITE BLOOD COUNT 5.8 10^3/uL (4.0-10.0)
[2021-02-12 17:06] LABS: ALBUMIN 2.4 GM/DL (3.2-5.2); ALT/SGPT 20 U/L (12-78); AMYLASE 55 U/L (25-115); BILIRUBIN,DIRECT 0.1 MG/DL (0.0-0.2); BILIRUBIN,TOTAL 0.4 MG/DL (0.2-1.0); CREATININE FOR GFR 0.46 MG/DL (0.55-1.30); GLOMERULAR FILTRATION RATE > 60.0 (>60); LDH LACTATE DEHYDROGENASE 143 U/L (84-246); LIPASE 98 U/L (73-393); TOTAL PROTEIN 5.6 GM/DL (6.4-8.2); URIC ACID 3.7 MG/DL (2.6-6.0)
[2021-02-12 17:12] LABS: BARBITURATES URINE REFLEX NEGATIVE (NEGATIVE); BENZODIAZEPINES URINE REFLEX NEGATIVE (NEGATIVE); COCAINE METABOLITE URINE REFLE NEGATIVE (NEGATIVE); METHADONE URINE REFLEX NEGATIVE (NEGATIVE); OPIATES URINE REFLEX NEGATIVE (NEGATIVE); PHENCYCLIDINE URINE REFLEX NEGATIVE (NEGATIVE)
--- NOTE | 2021-02-12 17:38 | REP ---
INDICATION: RUQ pain. COMPARISON: None. TECHNIQUE: Ultrasound FINDINGS: The gallbladder fluid filled without evidence of gallstone. The wall is not thickened. The common bile duct measures 4 mm. The liver shows normal size and echo pattern. The pancreas and right kidney unremarkable. IMPRESSION: Negative right upper quadrant ultrasound. <Electronically signed by Grant Barrios > 02/12/21 [id number]
[2021-02-12 17:49] LABS: HIV 1&2 SCREEN CENTAUR NEGATIVE (NEGATIVE)
--- NOTE | 2021-02-12 17:53 | REP ---
INDICATION: unknown dates, no care. COMPARISON: None. TECHNIQUE: Trans abdominal ultrasound FINDINGS: Single living intrauterine fetus in vertex presentation showing heart rate 147 beats per minute. Posterior fundal grade 1 placenta. No evidence of placenta previa. 3 vessels in the umbilical cord. KEN 13.9. Amniotic fluid volume normal. Biophysical profile 8 8 with 2 points each for breathing, tone, movement in a amniotic field volume. Gestational age CT calculated by average of BPD 7.5, HCT 28.6, AC 25.2, FL 5.2, a HL 4.6. The average gestational age is 29 weeks and 2 days with MICHAEL 04/28/2021. The anatomic survey was completed with no evidence of anomaly. The cervix length is 42 mm IMPRESSION: Living male fetus in vertex presentation showing MICHAEL 04/28/2021. <Electronically signed by Grant Barrios > 02/12/21 [id number]
[2021-02-12 18:00] LABS: GC DNA AMPLIFICATION NEGATIVE (NEGATIVE)
[2021-02-12 18:12] LABS: HIV 1&2 SCREEN CENTAUR NEGATIVE (NEGATIVE)
[2021-02-12 18:19] LABS: AMPHETAMINES URINE REFLEX PENDING CONFIRMATION (NEGATIVE); CANNABINOIDS URINE REFLEX PENDING CONFIRMATION (NEGATIVE)
[2021-02-12 18:22] LABS: HEPATITIS C VIRUS ABY INDEX > 11.0 INDEX (<0.8)
[2021-02-12] MEDS: FERROUS SULFATE 325MG TAB PO SCH (20:28)
[2021-02-12 20:34] VITALS: BP 117/61
[2021-02-13 06:08] VITALS: BP 116/59
[2021-02-13] MEDS: PRENATAL VITAMINS CHEWABLE TABLET PO SCH (09:59)
[2021-02-13] MEDS: CALCIUM CARBONATE 500 MG CHEW U/D PO SCH ×2 (09:59→16:50)
[2021-02-13] MEDS: FERROUS SULFATE 325MG TAB PO SCH (09:59)
[2021-02-18 06:08] LABS: Amphetamine Positive (.); Amphetamines Positive (.); Cannabinoid Positive (.); Carboxy THC Conf, MS, UR 110 ng/mL (Cutoff=10); GC Amphetamine 602 ng/mL (Cutoff=500); GC Methamphetam 3566 ng/mL (Cutoff=500); Methamphetamine Positive (.)
[2021-03-31] MEDS ORDERED: OMEP40CA4 PO (05:03)
[2021-03-31] MEDS ORDERED: PRENTAB9 PO (05:03)
[2021-03-31] MEDS ORDERED: ACET325C5 PO (05:03)
[2021-03-31] MEDS ORDERED: OMEP-218 PO (08:23)
== END 2021-02-13 18:11 | disposition home or self-care (01) ==
LOC: M LDO 15:08 → M OBS 21:56 → M LDO 02-13 18:11
PROVIDERS: ATTEND Advanced Practice Midwife
DX: O26.899 Other specified pregnancy related conditions, unspecified trimester (principal); O99.340 Other mental disorders complicating pregnancy, unspecified trimester; O09.30 Supervision of pregnancy with insufficient antenatal care, unspecified trimester; O99.330 Smoking (tobacco) complicating pregnancy, unspecified trimester; F17.210 Nicotine dependence, cigarettes, uncomplicated; F31.9 Bipolar disorder, unspecified; F41.9 Anxiety disorder, unspecified; Z3A.00 Weeks of gestation of pregnancy not specified; Z59.0 Homelessness
CPT/HCPCS: 36415; 59025; 76705; 76811; 76819; 76820; 76821; 80076; 80307; 82150; 82247; 82565; 82570; 83615; 83690; 84156; 84450; 84460; 84550; 85025; 86762; 86780; 86803; 86850; 86900; 86901; 87340; 87389; 87521; 87661; G0378; G0463; G0480

== ENCOUNTER → 2021-05-19 | Outpatient (CLI) | payer MEDICAID ==
[~2021-05-19] MED LIST changes: +ACET325C5 PO; +OMEP-218 PO; +OMEP40CA4 PO; +PRENTAB9 PO
== END ==
LOC: M OUTALCOH 08:01
PROVIDERS: ATTEND Psychiatry & Neurology Psychiatry
DX: F15.20 Other stimulant dependence, uncomplicated (principal)

== ENCOUNTER 2021-05-26 10:47 | Outpatient (RCR) | payer MEDICAID ==
[~2021-05-26 10:47] MED LIST changes: +OMEP-173 PO; -OMEP-218 PO
== END 2021-06-01 ==
LOC: M OUTALCOH 10:47
PROVIDERS: ATTEND Psychiatry & Neurology Psychiatry
DX: F15.20 Other stimulant dependence, uncomplicated (principal); F12.20 Cannabis dependence, uncomplicated; F17.200 Nicotine dependence, unspecified, uncomplicated

== ENCOUNTER 2021-06-22 12:50 | Emergency (ER) | payer MEDICAID, OTHER ==
[~2021-06-22] VITALS: Ht 154.9 cm; Wt 63.6 kg
[~2021-06-22 12:50] MED LIST changes: -OMEP-173 PO; +OMEP-218 PO
[2021-06-22 12:51] VITALS: BP 143/62
[2021-06-22] MEDS ORDERED: CLIN-250 PO (13:16)
[2021-06-22] MEDS ORDERED: AMOX875T PO (13:16)
[2021-06-22] MEDS ORDERED: AMPICILLIN SOD/SULBACTAM SOD 3 GM in D5W MINI-BAG PLUS 100 ML IV ONE (15:20)
[2021-06-22 15:48] LABS: BASO % 0.7 % (0.0-1.0); EOS # 0.3 10^3/uL (0.0-0.5); EOS % 4.7 % (0.0-3.0); HEMATOCRIT 37.6 % (36.0-47.0); HEMOGLOBIN 11.4 g/dl (12.0-15.5); LYMPH # 2.3 10^3/uL (1.5-5.0); LYMPH % 38.3 % (24.0-44.0); MEAN CORPUSCULAR HEMOGLOBIN 25.1 pg (27.0-33.0); MEAN CORPUSCULAR HGB CONC 30.3 g/dl (32.0-36.5); MEAN CORPUSCULAR VOLUME 82.6 fl (80.0-96.0); MONO # 0.6 10^3/uL (0.0-0.8); MONO % 10.6 % (2.0-8.0); NEUTROPHILS # 2.7 10^3/uL (1.5-8.5); NEUTROPHILS % 45.4 % (36.0-66.0); PLATELET COUNT, AUTOMATED 287 10^3/uL (150-450); RED BLOOD COUNT 4.55 10^6/uL (4.00-5.40); WHITE BLOOD COUNT 5.9 10^3/uL (4.0-10.0)
[2021-06-22 16:11] LABS: ERYTHROCYTE SEDIMENTATION RATE 17 mm/hr (0-20)
[2021-06-22 16:20] LABS: BLOOD UREA NITROGEN 15 MG/DL (7-18); CARBON DIOXIDE LEVEL 28 MEQ/L (21-32); CHLORIDE LEVEL 110 MEQ/L (98-107); CREATININE FOR GFR 0.54 MG/DL (0.55-1.30); GLOMERULAR FILTRATION RATE > 60.0 (>60); GLUCOSE, FASTING 84 MG/DL (70-100); POTASSIUM SERUM 4.3 MEQ/L (3.5-5.1); SODIUM LEVEL 142 MEQ/L (136-145)
== END 2021-06-22 17:11 | disposition home or self-care (01) ==
LOC: M ED 12:50
DX: K04.7 Periapical abscess without sinus (principal); J45.909 Unspecified asthma, uncomplicated; K21.9 Gastro-esophageal reflux disease without esophagitis; F12.10 Cannabis abuse, uncomplicated; G43.909 Migraine, unspecified, not intractable, without status migrainosus; Z88.5 Allergy status to narcotic agent; Z91.02 Food additives allergy status

== ENCOUNTER 2021-06-29 15:55 | Outpatient (RCR) | payer MEDICAID ==
[~2021-06-29 15:55] MED LIST changes: +AMOX875T PO; +CLIN-250 PO
== END 2021-07-02 ==
LOC: M OUTALCOH 15:55
PROVIDERS: ATTEND Psychiatry & Neurology Psychiatry
DX: F15.20 Other stimulant dependence, uncomplicated (principal); F12.20 Cannabis dependence, uncomplicated; F17.200 Nicotine dependence, unspecified, uncomplicated

== ENCOUNTER 2021-07-30 13:55 | Outpatient (RCR) | payer MEDICAID ==
[~2021-07-30 13:55] MED LIST changes: +OMEP-173 PO; -OMEP-218 PO
== END 2021-08-02 ==
LOC: M OUTALCOH 13:55
PROVIDERS: ATTEND Psychiatry & Neurology Psychiatry
DX: F15.20 Other stimulant dependence, uncomplicated (principal); F12.20 Cannabis dependence, uncomplicated; F17.200 Nicotine dependence, unspecified, uncomplicated

== ENCOUNTER 2021-08-27 15:00 | Outpatient (RCR) | payer MEDICAID | END 2021-08-30 | LOC: M OUTALCOH 15:00 | PROVIDERS: ATTEND Psychiatry & Neurology Psychiatry | DX: F15.20 Other stimulant dependence, uncomplicated (principal); F12.20 Cannabis dependence, uncomplicated; F17.200 Nicotine dependence, unspecified, uncomplicated ==

== ENCOUNTER 2021-09-29 16:00 | Outpatient (RCR) | payer MEDICAID | END 2021-09-30 | LOC: M OUTALCOH 16:00 | PROVIDERS: ATTEND Psychiatry & Neurology Psychiatry | DX: F15.20 Other stimulant dependence, uncomplicated (principal); F12.20 Cannabis dependence, uncomplicated; F17.200 Nicotine dependence, unspecified, uncomplicated ==

== ENCOUNTER 2021-10-27 16:00 | Outpatient (RCR) | payer MEDICAID | END 2021-10-30 | LOC: M OUTALCOH 16:00 | PROVIDERS: ATTEND Psychiatry & Neurology Psychiatry | DX: F15.20 Other stimulant dependence, uncomplicated (principal); F12.20 Cannabis dependence, uncomplicated; F17.200 Nicotine dependence, unspecified, uncomplicated ==

== ENCOUNTER 2021-11-24 12:00 | Outpatient (RCR) | payer MEDICAID | END 2021-11-30 | LOC: M OUTALCOH 12:00 | PROVIDERS: ATTEND Psychiatry & Neurology Psychiatry | DX: F15.20 Other stimulant dependence, uncomplicated (principal); F12.20 Cannabis dependence, uncomplicated; F17.200 Nicotine dependence, unspecified, uncomplicated ==

== ENCOUNTER → 2021-12-10 | Outpatient (REF) | payer MEDICAID | LOC: M LAB REF 16:12 | PROVIDERS: ATTEND Physician Assistant Medical | DX: R50.9 Fever, unspecified (principal) ==

== ENCOUNTER 2021-12-13 13:00 | Outpatient (RCR) | payer MEDICAID | END 2021-12-30 | LOC: M OUTALCOH 13:00 | PROVIDERS: ATTEND Psychiatry & Neurology Psychiatry | DX: F15.20 Other stimulant dependence, uncomplicated (principal); F12.20 Cannabis dependence, uncomplicated; F17.200 Nicotine dependence, unspecified, uncomplicated ==

== ENCOUNTER 2022-10-29 12:28 | Emergency (ER) | payer OTHER, MEDICAID ==
[~2022-10-29] VITALS: Ht 154.9 cm; Wt 61.4 kg
[2022-10-29] MEDS ORDERED: NS 1,000 ML IV ONE ×2 (12:55→13:35)
[2022-10-29 13:01] VITALS: BP 131/74
[2022-10-29] MEDS ORDERED: METOCLOPRAMIDE INJ 10MG/2ML VIAL IV ONE (13:20)
[2022-10-29 13:34] LABS: BASO % 0.5 % (0.0-1.0); EOS % 0.2 % (0.0-3.0); HEMATOCRIT 47.9 % (36.0-47.0); HEMOGLOBIN 15.9 g/dl (12.0-15.5); LYMPH # 1.8 10^3/uL (1.5-5.0); LYMPH % 27.5 % (24.0-44.0); MEAN CORPUSCULAR HEMOGLOBIN 26.9 pg (27.0-33.0); MEAN CORPUSCULAR HGB CONC 33.2 g/dl (32.0-36.5); MEAN CORPUSCULAR VOLUME 80.9 fl (80.0-96.0); MONO % 16.1 % (2.0-8.0); NEUTROPHILS # 3.6 10^3/uL (1.5-8.5); NEUTROPHILS % 55.4 % (36.0-66.0); PLATELET COUNT, AUTOMATED 234 10^3/uL (150-450); RED BLOOD COUNT 5.92 10^6/uL (4.00-5.40); WHITE BLOOD COUNT 6.5 10^3/uL (4.0-10.0)
[2022-10-29 13:55] LABS: ALBUMIN 4.3 G/DL (3.2-5.2); ALKALINE PHOSPHATASE 57 U/L (46-116); ALT/SGPT 24 U/L (7.0-40); AST/SGOT 37 U/L (<34); BILIRUBIN,TOTAL 1.1 MG/DL (0.3-1.2); BLOOD UREA NITROGEN 15 MG/DL (9-23); CALCIUM LEVEL 9.9 MG/DL (8.5-10.1); CARBON DIOXIDE LEVEL 27 MMOL/L (20-31); CHLORIDE LEVEL 98 MMOL/L (98-107); CREATININE FOR GFR 0.65 MG/DL (0.55-1.30); GLOMERULAR FILTRATION RATE > 60.0 (>60); GLUCOSE, FASTING 91 MG/DL (60-100); LIPASE 60 U/L (12-53); POTASSIUM SERUM 4.4 MMOL/L (3.5-5.1); SODIUM LEVEL 135 MMOL/L (136-145); TOTAL PROTEIN 7.9 G/DL (5.7-8.2)
[2022-10-29] MEDS ORDERED: ISOVUE-370 76% 100ML VIAL As Ordered ONE (14:09)
[2022-10-29 16:36] LABS: AMPHETAMINES LEVEL URINE NEGATIVE (NEGATIVE); BARBITURATES URINE NEGATIVE (NEGATIVE); BENZODIAZEPINES URINE NEGATIVE (NEGATIVE); COCAINE METABOLITE URINE NEGATIVE (NEGATIVE); METHADONE URINE NEGATIVE (NEGATIVE); OPIATES URINE NEGATIVE (NEGATIVE); PHENCYCLIDINE URINE NEGATIVE (NEGATIVE)
[2022-10-29 16:37] LABS: CANNABINOIDS URINE POSITIVE (NEGATIVE)
[2022-10-29] MEDS ORDERED: MIRA3350 PO (16:52)
[2022-10-29] MEDS ORDERED: REGL10TA6 PO (16:56)
== END 2022-10-29 17:36 | disposition home or self-care (01) ==
LOC: M ED 12:28 → EDBD 12:28 → M ED 17:36
DX: R11.10 Vomiting, unspecified (principal); I45.19 Other right bundle-branch block; J45.909 Unspecified asthma, uncomplicated; F17.200 Nicotine dependence, unspecified, uncomplicated; F12.10 Cannabis abuse, uncomplicated; B19.20 Unspecified viral hepatitis C without hepatic coma; Z88.1 Allergy status to other antibiotic agents; Z88.5 Allergy status to narcotic agent; Z91.018 Allergy to other foods; Z79.1 Long term (current) use of non-steroidal anti-inflammatories (NSAID); Z79.899 Other long term (current) drug therapy
CPT/HCPCS: 74177; 80053; 80307; 83690; 84702; 85025; 93005; 96361; 96374; 99284; J2765; Q9967

== ENCOUNTER 2024-06-13 19:21 | Inpatient (IN) | payer OTHER, MEDICAID ==
[~2024-06-13 19:21] MED LIST changes: +MIRA3350 PO; +REGL10TA6 PO
[2024-06-13] MEDS: LACTATED RINGER'S 1000 ML IV STA (19:48)
[2024-06-13] MEDS ORDERED: METHYLERGONOVINE MALEATE 0.2MG/ML 1ML VIAL IM PRN (19:50)
[2024-06-13] MEDS ORDERED: AZITHROMYCIN INJ 500 MG, VIAL MATE ADAPTER 1 EACH in NS 250 ML IV ONE (19:50)
[2024-06-13] MEDS: ceFAZolin SOD 2 GM in IV 1 EA IV ONE (19:50)
[2024-06-13] MEDS ORDERED: OXYTOCIN DRIP 30 UNITS in IV 1 EA IV PRN (19:50)
[2024-06-13] MEDS: BICITRA 30ML SOLN UDC PO ONE (19:50)
[2024-06-13] MEDS ORDERED: TRANEXAMIC ACID INJection 1,000 MG in NS 100 ML IV PRN (19:50)
[2024-06-13] MEDS ORDERED: CARBOPROST TROMETHAMINE 250 MCG/ML AMP IM PRN (19:50)
[2024-06-13] MEDS ORDERED: fentaNYL 100 MCG/2 ML INJECTION As Ordered ONE (19:52)
[2024-06-13] MEDS ORDERED: ROCURONIUM BROMIDE 50MG/5ML VIAL As Ordered ONE (19:53)
[2024-06-13] MEDS ORDERED: LIDOCAINE 2% 100MG/5ML SDV (FOR ANES.) As Ordered ONE (19:53)
[2024-06-13] MEDS ORDERED: propofoL 200 MG/20 ML VIAL As Ordered ONE (19:53)
[2024-06-13] MEDS ORDERED: MIDAZOLAM INJ 2MG/2ML VIAL As Ordered ONE (19:54)
[2024-06-13] MEDS ORDERED: ONDANSETRON 4MG 2ML VIAL As Ordered ONE (19:55)
[2024-06-13] MEDS ORDERED: OXYTOCIN 30UNITS IN 0.9% NaCl 500ML IV BAG As Ordered ONE (19:56)
[2024-06-13 20:02] LABS: HEMATOCRIT 36.4 % (36.0-47.0); HEMOGLOBIN 11.5 g/dl (12.0-15.5); MEAN CORPUSCULAR HEMOGLOBIN 25.5 pg (27.0-33.0); MEAN CORPUSCULAR HGB CONC 31.6 g/dl (32.0-36.5); MEAN CORPUSCULAR VOLUME 80.7 fl (80.0-96.0); PLATELET COUNT, AUTOMATED 222 10^3/uL (150-450); RED BLOOD COUNT 4.51 10^6/uL (4.00-5.40); WHITE BLOOD COUNT 9.8 10^3/uL (4.0-10.0)
[2024-06-13] MEDS ORDERED: GLYCOPYRROLATE INJ 0.2 MG/ML 2 ML VIAL As Ordered ONE (20:11)
[2024-06-13 20:22] VITALS: BP 176/106
[2024-06-13 20:24] VITALS: BP 165/101
[2024-06-13 20:30] VITALS: BP 151/90
[2024-06-13 20:35] VITALS: BP 145/89
[2024-06-13] MEDS ORDERED: ACETAMINOPHEN 500 MG TAB PO PRN (20:45)
[2024-06-13] MEDS ORDERED: DOCUSATE SODIUM 100MG CAPSULE PO PRN (20:45)
[2024-06-13] MEDS ORDERED: METHYLERGONOVINE MALEATE 0.2 MG TAB PO PRN (20:45)
[2024-06-13] MEDS ORDERED: DIBUCAINE 1% OINTMENT 30GM TOP PRN (20:45)
[2024-06-13] MEDS ORDERED: RHOGAM 300MCG (1500IU) INJ IM SCH (20:45)
[2024-06-13 21:21] VITALS: BP 130/78
[2024-06-13 22:14] LABS: HIV 1&2 SCREEN NEGATIVE (NEGATIVE)
[2024-06-13 22:30] VITALS: BP 149/93; O2SAT 99
[2024-06-13 22:31] LABS: HEPATITIS C VIRUS ABY INDEX > 11.00 INDEX (<0.8)
[2024-06-13] MEDS: ONDANSETRON 4MG 2ML VIAL IV ONE (22:38)
[2024-06-14] MEDS: ONDANSETRON 4MG 2ML VIAL IV PRN (05:07)
[2024-06-14 05:57] VITALS: BP 131/81; O2SAT 99
[2024-06-14 07:16] LABS: HEMATOCRIT 36.4 % (36.0-47.0); HEMOGLOBIN 11.5 g/dl (12.0-15.5); MEAN CORPUSCULAR HEMOGLOBIN 25.4 pg (27.0-33.0); MEAN CORPUSCULAR HGB CONC 31.6 g/dl (32.0-36.5); MEAN CORPUSCULAR VOLUME 80.4 fl (80.0-96.0); PLATELET COUNT, AUTOMATED 224 10^3/uL (150-450); RED BLOOD COUNT 4.53 10^6/uL (4.00-5.40); WHITE BLOOD COUNT 12.7 10^3/uL (4.0-10.0)
[2024-06-14] MEDS: PRENATAL VITAMINS CHEWABLE TABLET PO SCH (07:42)
[2024-06-14] MEDS ORDERED: UNRESOLVED CLARIFICATION ENTRY XX SCH (09:00)
[2024-06-14] MEDS: METOCLOPRAMIDE INJ 10MG/2ML VIAL IV PRN (09:08)
[2024-06-14 18:00] VITALS: BP 131/82; O2SAT 98
[2024-06-15 06:26] VITALS: BP 115/72; O2SAT 100
[2024-06-15] MEDS: MEASLES,MUMPS,RUBELLA VACCINE INJ (MMR-II) SC.IMMUN ONE (09:00)
[2024-06-15] MEDS ORDERED: medroxyPROGESTERone ACET IM SUSP 150 MG/ML VIAL IM ONE (09:00)
[2024-06-15] MEDS: BENZONATATE 100MG CAPSULE PO PRN (14:35)
[2024-06-15 18:00] VITALS: BP 128/80; O2SAT 96
[2024-06-16 05:58] VITALS: BP 127/79; O2SAT 99
[2024-06-16 18:00] VITALS: BP 119/90; O2SAT 98
[2024-06-17] MEDS: IBUPROFEN 600MG TAB PO PRN (05:55)
[2024-06-17 06:17] VITALS: BP 135/78; O2SAT 97
[2024-06-18 19:12] LABS: HCV RNA log10 6.27 Log IU/mL (NOT DETECTED)
== END 2024-06-17 10:38 | disposition left against medical advice (07) | DRG 560 ==
LOC: M LDO 19:21 → M LDI 19:40 → M OBS 22:15
PROVIDERS: ADMIT Obstetrics & Gynecology; ATTEND Obstetrics & Gynecology
PROC: 10E0XZZ Delivery of Products of Conception, External Approach (ICD-10-PCS; principal; 2024-06-13)
DX: O34.211 Maternal care for low transverse scar from previous cesarean delivery (principal); O99.324 Drug use complicating childbirth; O62.3 Precipitate labor; Z37.0 Single live birth; Z3A.39 39 weeks gestation of pregnancy; O09.31 Supervision of pregnancy with insufficient antenatal care, first trimester; O09.32 Supervision of pregnancy with insufficient antenatal care, second trimester; O09.33 Supervision of pregnancy with insufficient antenatal care, third trimester; O09.523 Supervision of elderly multigravida, third trimester; F15.90 Other stimulant use, unspecified, uncomplicated; Z59.00 Homelessness unspecified

== ENCOUNTER 2025-04-07 13:17 | Emergency (ER) | payer OTHER ==
[~2025-04-07] VITALS: Ht 154.9 cm; Wt 49.4 kg
[~2025-04-07 13:17] MED LIST changes: -FLOM0.4C39 PO; -IBUP-1022 PO; +IBUP600T42 PO; +ONDA-282 PO; +TAMS-18 PO
[2025-04-07 13:28] VITALS: BP 115/77; TEMP 97.4; O2SAT 95
[2025-04-07 15:36] LABS: BASO # 0.0 10^3/uL (0.0-0.2); BASO % 0.3 % (0.0-1.0); EOS # 0.1 10^3/uL (0.0-0.5); EOS % 0.5 % (0.0-3.0); LYMPH # 1.5 10^3/uL (1.5-5.0); LYMPH % 16.2 % (24.0-44.0); MONO # 0.4 10^3/uL (0.0-0.8); MONO % 4.2 % (2.0-8.0); NEUTROPHILS # 7.2 10^3/uL (1.5-8.5); NEUTROPHILS % 78.4 % (36.0-66.0); PLATELET COUNT, AUTOMATED 318 10^3/uL (150-450)
[2025-04-07 16:01] LABS: ALT/SGPT 22 U/L (7.0-40); AST/SGOT 18 U/L (<34); CALCIUM LEVEL 9.5 MG/DL (8.5-10.1); CARBON DIOXIDE LEVEL 27 MMOL/L (20-31); CHLORIDE LEVEL 104 MMOL/L (98-107); CREATININE FOR GFR 0.58 MG/DL (0.55-1.30); GLOMERULAR FILTRATION RATE > 90.0 (>60); POTASSIUM SERUM 4.0 MMOL/L (3.5-5.1); SODIUM LEVEL 140 MMOL/L (136-145)
== END 2025-04-07 16:30 | disposition left against medical advice (07) ==
LOC: M ED 13:17
DX: Z53.21 Procedure and treatment not carried out due to patient leaving prior to being seen by health care provider (principal)